=== PATIENT | male | born 1995 | race Caucasian/White ===

== ENCOUNTER 2025-02-22 20:54 | Outpatient (CLI) | payer OTHER, SELFPAY | END 2025-02-22 20:55 | disposition home or self-care (01) | LOC: SLEEP 20:55 | PROVIDERS: Visit Provider Nurse Practitioner | DX: G47.33 Obstructive sleep apnea (adult) (pediatric) (principal); G47.10 Hypersomnia, unspecified; G25.81 Restless legs syndrome | CPT/HCPCS: 95810 ==